=== PATIENT | female | born 1945 | race Caucasian/White ===

== ENCOUNTER 2017-10-17 14:34 | Emergency (ER) | payer OTHER ==
[~2017-10-17] VITALS: Ht 154.9 cm; Wt 84.2 kg
[~2017-10-17 14:34] MED LIST: ASPIRIN81 M2 PO; BIOTIN1000 MICRO PO; CINNAMON500 MG PO; CO Q-10100 MG PO; CRANBERRY TABL1 EACH PO; JANUVIA100 MG PO; LISINOPRIL10 MG PO; MULTIVITAMIN1 EAC2 PO; NEXIUM40 MG PO; NORCO 5/3251 TABLET PO; PRAVASTATIN SOD80 MG PO; RESVERATROL100 MG PO
[2017-10-17 16:47] LABS: HEMOGLOBIN 12.7 G/DL (11.9-15.5); MCH 30.8 PG (29.0-34.0); MCHC 33.4 G/DL (30.0-36.0); PLATELET COUNT 208 K/uL (156-360); RBC DIS.WIDTH-CV 12.7 % (11.8-14.6); RBC DIS.WIDTH-SD 42.6 % (39-53); RED BLOOD COUNT 4.13 M/uL (3.80-5.20); WHITE BLOOD COUNT 10.1 K/uL (4.1-10.2)
[2017-10-17 16:57] LABS: CHLORIDE 108 mEq/L (99-109); POTASSIUM 3.8 mEq/L (3.7-5.4); SODIUM 144 mEq/L (136-147)
[2017-10-17 16:59] LABS: GLUCOSE 119 mg/dL (70-99)
[2017-10-17 17:03] LABS: CREATININE 0.7 mg/dL (0.6-1.3); GFR ESTIMATE (CALCULATED) > 59 mL/min/
[2017-10-17 17:04] LABS: UREA NITROGEN (BUN) 10 mg/dL (9-23)
[2017-10-17 17:53] VITALS: BP 130/51
== END 2017-10-17 18:27 | disposition home or self-care (01) ==
LOC: EME 14:34
PROVIDERS: Family Medicine
DX: R51 Headache (principal); I10 Essential (primary) hypertension; E11.9 Type 2 diabetes mellitus without complications; K21.9 Gastro-esophageal reflux disease without esophagitis; Z85.828 Personal history of other malignant neoplasm of skin; Z88.2 Allergy status to sulfonamides; Z88.1 Allergy status to other antibiotic agents; Z87.891 Personal history of nicotine dependence
CPT/HCPCS: 70450; 80048; 85027; 99281; 99285; J0780; J1200; J7040